=== PATIENT | male | born 1995 | race Caucasian/White ===

== ENCOUNTER 2024-07-11 23:34 | Emergency (ER) | payer OTHER ==
[~2024-07-11] VITALS: Ht 177.8 cm; Wt 82.6 kg
[2024-07-12] MEDS ORDERED: POLY10DR3 EACHEYE (00:05)
[2024-07-12] MEDS ORDERED: HYDR-4209 PO (00:05)
[2024-07-12 00:16] VITALS: BP 130/89; TEMP 98.2; O2SAT 99
== END 2024-07-12 00:16 | disposition home or self-care (01) ==
LOC: ER 23:43
DX: H10.89 Other conjunctivitis (principal); Z76.0 Encounter for issue of repeat prescription; F17.200 Nicotine dependence, unspecified, uncomplicated